=== PATIENT | male | born 1965 | race Caucasian/White ===

== ENCOUNTER 2018-01-30 15:48 | Observation (INO) | payer OTHER ==
[~2018-01-30] VITALS: Ht 177.8 cm; Wt 95.9 kg
[~2018-01-30 15:48] MED LIST: ATARAX25 MG PO; AZULFIDINE PO; CEFTIN250 MG PO; CEPHALEXIN500 M1 PO; DEPAKOTE DR500 MG PO; LORTAB 7.5/5001 TAB PO; SULFASALAZINE
[2018-01-30 17:32] LABS: BASO # 0.1 (0.0-0.2); BASO % 0.6 % (0.0-2.0); EOS # 0.2 (0.0-0.7); EOS % 1.8 % (0-4.0); GRAN # 5.2 (1.4-6.5); GRAN % 58.9 % (42.2-75.2); HEMOGLOBIN 13.6 g/dl (13.5-18.0); LYMPH # 2.2 (1.2-3.4); LYMPH % 24.9 % (20.0-51.0); MEAN CELL VOLUME 101 fl (80.0-100.0); MEAN CORPUSCULAR HEMOGLOBIN 34 pg (27.0-31.0); MEAN CORPUSCULAR HGB CONC 34 g/dl (33.0-37.0); MEAN PLATELET VOLUME 9.6 fl (7.4-10.4); MONO # 1.1 (0.1-0.6); PLATELET COUNT 335 K/mm3 (130-400); RED BLOOD COUNT 3.95 M/mm3 (4.20-5.60); REDCELL DISTRIBUTION WIDTH-CV 14.7 % (11.5-14.5)
[2018-01-30 17:36] LABS: INR 1.2 (0.8-3.0); PROTHROMBIN TIME 13.9 SECONDS (9.7-12.8)
[2018-01-30 17:39] LABS: PARTIAL THROMBOPLASTIN TIME 38.3 SECONDS (26.0-37.0)
[2018-01-30 17:47] LABS: ALBUMIN 4.2 gm/dL (3.5-5.0); BILIRUBIN,TOTAL 1.7 mg/dL (0.0-1.0); C-REACTIVE PROTEIN 0.6 mg/dL (0.0-0.9); CALCIUM 8.6 mg/dL (8.4-10.2); CREATININE, serum 0.84 mg/dL (0.66-1.25); POTASSIUM 3.9 mmol/L (3.4-5.0); TOTAL PROTEIN 6.6 gm/dL (6.4-8.2)
[2018-01-30] MEDS ORDERED: AZULFIDINE500 MG/TAB PO (20:40)
[2018-01-30] MEDS ORDERED: KEPPRA 500MG500 MG PO (20:40)
[2018-01-30] MEDS ORDERED: SYNTHROID0.075 MG/T PO (20:41)
[2018-01-30] MEDS ORDERED: PRINIVIL20 MG PO (20:41)
[2018-01-30] MEDS ORDERED: ZANTAC 150MG T150 MG PO (20:41)
[2018-01-30] MEDS ORDERED: ZOCOR 40MG40 MG PO (20:42)
[2018-01-30] MEDS ORDERED: DAPSONE 100MG100 MG PO (20:43)
[2018-01-30] MEDS ORDERED: ATARAX 25MG25 MG/TAB PO (20:43)
[2018-01-30] MEDS ORDERED: TYLENOL 500MG500 MG PO (22:41)
[2018-01-30 23:00] VITALS: BP 105/60; PULSE 90; TEMP 98.1
[2018-01-30 23:16] VITALS: BP 127/74; PULSE 95; TEMP 98.8
[2018-01-31 00:24] VITALS: BP 104/61; PULSE 87; TEMP 98.2
[2018-01-31 04:17] VITALS: BP 106/60; PULSE 82; TEMP 97.3
[2018-01-31 07:32] VITALS: BP 117/64; PULSE 67; TEMP 98.4
[2018-01-31 08:13] LABS: BASO % 0.8 % (0.0-2.0); EOS # 0.2 (0.0-0.7); EOS % 3.1 % (0-4.0); GRAN # 2.6 (1.4-6.5); GRAN % 54.1 % (42.2-75.2); HEMATOCRIT 37.6 % (42.0-52.0); HEMOGLOBIN 12.5 g/dl (13.5-18.0); LYMPH # 1.3 (1.2-3.4); LYMPH % 27.1 % (20.0-51.0); MEAN CELL VOLUME 104 fl (80.0-100.0); MEAN CORPUSCULAR HEMOGLOBIN 34 pg (27.0-31.0); MEAN CORPUSCULAR HGB CONC 33 g/dl (33.0-37.0); MEAN PLATELET VOLUME 10.1 fl (7.4-10.4); MONO # 0.7 (0.1-0.6); MONO % 14.1 % (1.7-9.3); PLATELET COUNT 313 K/mm3 (130-400); RED BLOOD COUNT 3.63 M/mm3 (4.20-5.60)
[2018-01-31 08:19] LABS: INR 1.1 (0.8-3.0); PROTHROMBIN TIME 12.8 SECONDS (9.7-12.8)
[2018-01-31 08:24] LABS: CALCIUM 8.2 mg/dL (8.4-10.2); CREATININE, serum 0.8 mg/dL (0.66-1.25); POTASSIUM 4.2 mmol/L (3.4-5.0)
[2018-01-31 11:57] VITALS: BP 138/86; PULSE 75; TEMP 98.4
== END 2018-01-31 18:50 | disposition home or self-care (01) ==
LOC: COL.ER 15:48 → MEDICAL 21:27
PROVIDERS: Nurse Practitioner; Physician Assistant
DX: T63.001A Toxic effect of unspecified snake venom, accidental (unintentional), initial encounter (principal); Y92.89 Other specified places as the place of occurrence of the external cause; I10 Essential (primary) hypertension; E78.5 Hyperlipidemia, unspecified; R56.9 Unspecified convulsions; F17.210 Nicotine dependence, cigarettes, uncomplicated; Z88.8 Allergy status to other drugs, medicaments and biological substances; Z91.018 Allergy to other foods; Z87.19 Personal history of other diseases of the digestive system
CPT/HCPCS: G0378; J0840; J1170; J1200; J2405; J7030; J7050

== ENCOUNTER → 2020-08-01 | Outpatient (CLI) | payer BC ==
[~2020-08-01] MED LIST changes: +ATARAX 25MG25 MG/TAB PO; +AZULFIDINE500 MG/TAB PO; +DAPSONE 100MG100 MG PO; +KEPPRA 500MG500 MG PO; +PRINIVIL20 MG PO; +SYNTHROID0.075 MG/T PO; +TYLENOL 500MG500 MG PO; +ZANTAC 150MG T150 MG PO; +ZOCOR 40MG40 MG PO
== END ==
LOC: MHCPAIN 08:42
DX: M47.812 Spondylosis without myelopathy or radiculopathy, cervical region (principal); M54.2 Cervicalgia; M47.816 Spondylosis without myelopathy or radiculopathy, lumbar region; M54.5 Low back pain; G89.29 Other chronic pain
CPT/HCPCS: G0463

== ENCOUNTER → 2020-10-03 | Outpatient (CLI) | payer BC | LOC: MHCPAIN 07:49 | DX: M47.816 Spondylosis without myelopathy or radiculopathy, lumbar region (principal); M54.5 Low back pain; M53.3 Sacrococcygeal disorders, not elsewhere classified; G89.29 Other chronic pain | CPT/HCPCS: G0463 ==

== ENCOUNTER 2021-02-20 14:22 | Emergency (ER) | payer OTHER, BC ==
[~2021-02-20] VITALS: Ht 175.3 cm; Wt 95.5 kg
[2021-02-20 14:35] VITALS: BP 131/90; TEMP 98.6
[2021-02-20] MEDS ORDERED: CEPHALEXIN500 M1 PO (17:24)
[2021-02-20 17:39] VITALS: PULSE 84
== END 2021-02-20 17:39 | disposition home or self-care (01) ==
LOC: COL.ER 14:22
DX: S61.215A Laceration without foreign body of left ring finger without damage to nail, initial encounter (principal); I10 Essential (primary) hypertension; K50.90 Crohn's disease, unspecified, without complications; Z79.899 Other long term (current) drug therapy; F17.200 Nicotine dependence, unspecified, uncomplicated; W01.198A Fall on same level from slipping, tripping and stumbling with subsequent striking against other object, initial encounter; Y92.59 Other trade areas as the place of occurrence of the external cause; Y99.0 Civilian activity done for income or pay
CPT/HCPCS: J2270